=== PATIENT | female | born 1955 | race Caucasian/White ===

== ENCOUNTER → 2019-05-13 13:55 | Outpatient (CLI) | payer BC, OTHER, SELFPAY ==
--- NOTE | 2019-05-13 14:17 | XR_ITS ---
PROCEDURE: XR CHEST 2V CLINICAL HISTORY: COUGH Cough and congestion COMPARISON: CXR CHEST(2 VIEWS-NOT PORTABLE) from 06/20/2016 FINDINGS: The cardiomediastinal silhouette and pulmonary vascularity are within normal limits. The lungs are clear without infiltrates, suspicious nodules, or pleural effusions. No acute bony abnormalities. IMPRESSION: No acute findings. Dictated by: Dixon Guzman MD 05/13/2019 17:45 Electronically signed by Dixon Guzman MD in [place] 05/13/2019 17:45
== END ==
PROVIDERS: PCP Family Medicine; Visit Provider Family Medicine
DX: R05 Cough (principal)
CPT/HCPCS: 71046

== ENCOUNTER → 2021-04-01 09:29 | Outpatient (CLI) | payer MEDICARE, OTHER, SELFPAY | DX: Z94.4 Liver transplant status (principal) ==

== ENCOUNTER → 2021-04-12 08:55 | Outpatient (CLI) | payer MEDICARE, OTHER, SELFPAY ==
[2021-04-12 09:26] LABS: Basophils % 0.4 % (0.1-2.0); Eosinophils # 0.1 K/mm3 (0.0-0.4); Eosinophils % 0.9 % (0.1-12.0); Hematocrit 44.3 % (37.0-47.0); Hemoglobin 14.8 g/dL (12.2-16.2); Lymphocytes # 1.8 K/mm3 (0.7-4.5); Lymphocytes % 32.1 % (10-50); Mean Corpuscular HGB Conc 33.5 g/dL (31.8-35.4); Mean Corpuscular Hemoglobin 29.2 pg (27.0-31.2); Mean Corpuscular Volume 87.3 fl (81-99); Monocytes # 0.3 K/mm3 (0.1-1.0); Monocytes % 5.6 % (1.7-9.3); Neutrophils # 3.5 K/mm3 (1.8-7.8); Platelet Count 160 K/mm3 (142-424); Red Blood Count 5.07 M/mm3 (4.20-5.40); Red Cell Distribution Width 14.5 % (11.5-17.5); White Blood Count 5.7 K/mm3 (4.8-10.8)
[2021-04-12 10:44] LABS: Alanine Aminotransferase 15 U/L (12-78); Albumin Level 4.3 g/dl (3.5-5.0); Albumin/Globulin Ratio 1.9 (1.1-1.8); Alkaline Phosphatase 115 U/L (38-126); Anion Gap 11.4 mEq/L (5-15); Aspartate Amino Transferase 28 U/L (14-36); Bilirubin,Total 0.5 mg/dl (0.2-1.3); Blood Urea Nitrogen 21 mg/dl (7-17); Calcium 9.4 mg/dl (8.4-10.2); Carbon Dioxide 29 mmol/L (22.0-30.0); Chloride 105 mmol/L (98-107); Estimated Glomerular Filt Rate 63 ml/min (>60); GFR (African American) 76 ML/MIN (>60); Gamma Glutamyl Transpeptidase 24 U/L (12-43); Globulin 2.3 g/dL (1.3-3.2); Glucose 106 mg/dl (74-100); Magnesium 1.8 mg/dl (1.6-2.3); Potassium 4.4 mmoL/L (3.5-5.1); Sodium 141 mmol/L (136-145); Total Protein,Serum 6.6 g/dl (6.3-8.2)
== END ==
PROVIDERS: Visit Provider Nurse Practitioner Acute Care
DX: Z94.4 Liver transplant status (principal)
CPT/HCPCS: 36415; 80053; 82977; 83735; 85025

== ENCOUNTER → 2021-05-10 08:24 | Outpatient (CLI) | payer MEDICARE, OTHER, SELFPAY ==
[2021-05-10 09:15] LABS: Basophils % 0.4 % (0.1-2.0); Eosinophils # 0.1 K/mm3 (0.0-0.4); Eosinophils % 1.3 % (0.1-12.0); Hemoglobin 14.2 g/dL (12.2-16.2); Lymphocytes # 1.4 K/mm3 (0.7-4.5); Lymphocytes % 29.5 % (10-50); Mean Corpuscular HGB Conc 33.7 g/dL (31.8-35.4); Mean Corpuscular Hemoglobin 29.5 pg (27.0-31.2); Mean Corpuscular Volume 87.4 fl (81-99); Mean Platelet Volume 7.7 fl (7.4-10.4); Monocytes # 0.4 K/mm3 (0.1-1.0); Monocytes % 7.6 % (1.7-9.3); Neutrophils % 61.2 % (37.0-80.0); Platelet Count 143 K/mm3 (142-424); Red Cell Distribution Width 14.5 % (11.5-17.5); White Blood Count 4.9 K/mm3 (4.8-10.8)
[2021-05-10 10:17] LABS: Alanine Aminotransferase 19 U/L (12-78); Albumin Level 3.9 g/dl (3.5-5.0); Albumin/Globulin Ratio 1.7 (1.1-1.8); Alkaline Phosphatase 103 U/L (38-126); Anion Gap 9.3 mEq/L (5-15); Aspartate Amino Transferase 30 U/L (14-36); Bilirubin,Total 0.5 mg/dl (0.2-1.3); Blood Urea Nitrogen 21 mg/dl (7-17); Carbon Dioxide 29 mmol/L (22.0-30.0); Chloride 104 mmol/L (98-107); Estimated Glomerular Filt Rate 63 ml/min (>60); GFR (African American) 76 ML/MIN (>60); Gamma Glutamyl Transpeptidase 23 U/L (12-43); Globulin 2.3 g/dL (1.3-3.2); Glucose 106 mg/dl (74-100); Magnesium 1.8 mg/dl (1.6-2.3); Potassium 4.3 mmoL/L (3.5-5.1); Sodium 138 mmol/L (136-145); Total Protein,Serum 6.2 g/dl (6.3-8.2)
== END ==
PROVIDERS: Visit Provider Nurse Practitioner Acute Care
DX: Z94.4 Liver transplant status (principal)
CPT/HCPCS: 36415; 80053; 82977; 83735; 85025

== ENCOUNTER → 2021-05-29 10:01 | Outpatient (CLI) | payer MEDICARE, OTHER, SELFPAY ==
[2021-05-29 10:40] LABS: Hematocrit 43.8 % (37.0-47.0); Hemoglobin 14.2 g/dL (12.2-16.2); Mean Corpuscular HGB Conc 32.5 g/dL (31.8-35.4); Mean Corpuscular Hemoglobin 29.1 pg (27.0-31.2); Mean Corpuscular Volume 89.7 fl (81-99); Platelet Count 157 K/mm3 (142-424); Red Blood Count 4.89 M/mm3 (4.20-5.40); Red Cell Distribution Width 14.3 % (11.5-17.5); White Blood Count 6.4 K/mm3 (4.8-10.8)
[2021-05-29 11:10] LABS: Alanine Aminotransferase 20 U/L (12-78); Albumin Level 4.2 g/dl (3.5-5.0); Alkaline Phosphatase 96 U/L (38-126); Anion Gap 12.9 mEq/L (5-15); Aspartate Amino Transferase 29 U/L (14-36); Bilirubin,Total 0.4 mg/dl (0.2-1.3); Blood Urea Nitrogen 18 mg/dl (7-17); Calcium 9.5 mg/dl (8.4-10.2); Carbon Dioxide 28 mmol/L (22.0-30.0); Chloride 104 mmol/L (98-107); Estimated Glomerular Filt Rate 63 ml/min (>60); GFR (African American) 76 ML/MIN (>60); Gamma Glutamyl Transpeptidase 27 U/L (12-43); Globulin 2.1 g/dL (1.3-3.2); Glucose 115 mg/dl (74-100); Magnesium 1.2 mg/dl (1.6-2.3); Potassium 4.9 mmoL/L (3.5-5.1); Sodium 140 mmol/L (136-145); Total Protein,Serum 6.3 g/dl (6.3-8.2)
== END ==
PROVIDERS: Visit Provider Nurse Practitioner Acute Care
DX: Z94.4 Liver transplant status (principal)
CPT/HCPCS: 36415; 80053; 82977; 83735; 85014; 85018; 85048; 85049

== ENCOUNTER → 2021-06-20 09:11 | Outpatient (CLI) | payer MEDICARE, OTHER, SELFPAY ==
[2021-06-20 09:30] LABS: Hematocrit 43.5 % (37.0-47.0); Hemoglobin 13.8 g/dL (12.2-16.2); Mean Corpuscular HGB Conc 31.9 g/dL (31.8-35.4); Mean Corpuscular Hemoglobin 29.3 pg (27.0-31.2); Mean Corpuscular Volume 92.1 fl (81-99); Platelet Count 161 K/mm3 (142-424); Red Blood Count 4.72 M/mm3 (4.20-5.40); Red Cell Distribution Width 14.5 % (11.5-17.5); White Blood Count 5.5 K/mm3 (4.8-10.8)
[2021-06-20 11:12] LABS: Chloride 106 mmol/L (98-107); Potassium 4.6 mmoL/L (3.5-5.1); Sodium 139 mmol/L (136-145)
[2021-06-20 11:14] LABS: Alanine Aminotransferase 16 U/L (12-78); Aspartate Amino Transferase 28 U/L (14-36); Blood Urea Nitrogen 21 mg/dl (7-17); Estimated Glomerular Filt Rate 63 ml/min (>60); GFR (African American) 76 ML/MIN (>60)
[2021-06-20 11:15] LABS: Albumin Level 4.2 g/dl (3.5-5.0); Albumin/Globulin Ratio 1.9 (1.1-1.8); Alkaline Phosphatase 104 U/L (38-126); Anion Gap 8.6 mEq/L (5-15); Bilirubin,Total 0.5 mg/dl (0.2-1.3); Calcium 9.3 mg/dl (8.4-10.2); Carbon Dioxide 29 mmol/L (22.0-30.0); Globulin 2.2 g/dL (1.3-3.2); Glucose 106 mg/dl (74-100); Magnesium 1.6 mg/dl (1.6-2.3); Total Protein,Serum 6.4 g/dl (6.3-8.2)
[2021-06-20 12:04] LABS: Gamma Glutamyl Transpeptidase 25 U/L (12-43)
== END ==
PROVIDERS: PCP Family Medicine; Visit Provider Nurse Practitioner Acute Care
DX: Z94.4 Liver transplant status (principal)
CPT/HCPCS: 36415; 80053; 82977; 83735; 85014; 85018; 85048; 85049

== ENCOUNTER → 2021-08-13 10:14 | Outpatient (CLI) | payer MEDICARE, OTHER, SELFPAY ==
[2021-08-13 10:59] LABS: Hematocrit 44.2 % (37.0-47.0); Hemoglobin 14.4 g/dL (12.2-16.2); Mean Corpuscular HGB Conc 32.6 g/dL (31.8-35.4); Mean Corpuscular Hemoglobin 29.7 pg (27.0-31.2); Mean Corpuscular Volume 91.1 fl (81-99); Platelet Count 155 K/mm3 (142-424); Red Blood Count 4.86 M/mm3 (4.20-5.40); White Blood Count 5.3 K/mm3 (4.8-10.8)
[2021-08-13 11:22] LABS: Alanine Aminotransferase 24 U/L (12-78); Albumin Level 4.1 g/dl (3.5-5.0); Albumin/Globulin Ratio 1.9 (1.1-1.8); Alkaline Phosphatase 102 U/L (38-126); Anion Gap 11.8 mEq/L (5-15); Aspartate Amino Transferase 34 U/L (14-36); Bilirubin,Total 0.5 mg/dl (0.2-1.3); Blood Urea Nitrogen 18 mg/dl (7-17); Carbon Dioxide 28 mmol/L (22.0-30.0); Chloride 107 mmol/L (98-107); Estimated Glomerular Filt Rate 63 ml/min (>60); GFR (African American) 76 ML/MIN (>60); Gamma Glutamyl Transpeptidase 22 U/L (12-43); Globulin 2.2 g/dL (1.3-3.2); Glucose 104 mg/dl (74-100); Magnesium 1.7 mg/dl (1.6-2.3); Potassium 4.8 mmoL/L (3.5-5.1); Sodium 142 mmol/L (136-145); Total Protein,Serum 6.3 g/dl (6.3-8.2)
== END ==
PROVIDERS: Visit Provider Nurse Practitioner Acute Care
DX: Z94.4 Liver transplant status (principal)
CPT/HCPCS: 36415; 80053; 82977; 83735; 85014; 85018; 85048; 85049

== ENCOUNTER → 2021-09-13 09:44 | Outpatient (CLI) | payer MEDICARE, OTHER, SELFPAY ==
[2021-09-13 10:58] LABS: Hematocrit 38.9 % (37.0-47.0); Hemoglobin 14.2 g/dL (12.2-16.2); Mean Corpuscular HGB Conc 36.6 g/dL (31.8-35.4); Mean Corpuscular Hemoglobin 33.6 pg (27.0-31.2); Mean Corpuscular Volume 91.8 fl (81-99); Platelet Count 105 K/mm3 (142-424); Red Blood Count 4.24 M/mm3 (4.20-5.40); Red Cell Distribution Width 15.4 % (11.5-17.5); White Blood Count 4.4 K/mm3 (4.8-10.8)
[2021-09-13 11:26] LABS: Alanine Aminotransferase 21 U/L (12-78); Albumin/Globulin Ratio 1.9 (1.1-1.8); Alkaline Phosphatase 98 U/L (38-126); Anion Gap 10.3 mEq/L (5-15); Aspartate Amino Transferase 29 U/L (14-36); Bilirubin,Total 0.6 mg/dl (0.2-1.3); Blood Urea Nitrogen 20 mg/dl (7-17); Calcium 8.9 mg/dl (8.4-10.2); Carbon Dioxide 27 mmol/L (22.0-30.0); Chloride 108 mmol/L (98-107); Estimated Glomerular Filt Rate 63 ml/min (>60); GFR (African American) 76 ML/MIN (>60); Gamma Glutamyl Transpeptidase 22 U/L (12-43); Globulin 2.1 g/dL (1.3-3.2); Glucose 99 mg/dl (74-100); Magnesium 1.6 mg/dl (1.6-2.3); Potassium 4.3 mmoL/L (3.5-5.1); Sodium 141 mmol/L (136-145); Total Protein,Serum 6.1 g/dl (6.3-8.2)
== END ==
PROVIDERS: Visit Provider Nurse Practitioner Acute Care
DX: Z94.4 Liver transplant status (principal)
CPT/HCPCS: 36415; 80053; 82977; 83735; 85014; 85018; 85048; 85049

== ENCOUNTER → 2021-11-18 09:05 | Outpatient (CLI) | payer MEDICARE, OTHER, SELFPAY ==
[2021-11-18 09:56] LABS: Hematocrit 43.1 % (37.0-47.0); Hemoglobin 13.7 g/dL (12.2-16.2); Mean Corpuscular HGB Conc 31.8 g/dL (31.8-35.4); Mean Corpuscular Hemoglobin 30.3 pg (27.0-31.2); Mean Corpuscular Volume 95.5 fl (81-99); Platelet Count 135 K/mm3 (142-424); Red Blood Count 4.52 M/mm3 (4.20-5.40); Red Cell Distribution Width 15.3 % (11.5-17.5); White Blood Count 4.8 K/mm3 (4.8-10.8)
[2021-11-18 09:58] LABS: Alanine Aminotransferase 26 U/L (12-78); Albumin Level 3.6 g/dl (3.5-5.0); Albumin/Globulin Ratio 1.7 (1.1-1.8); Alkaline Phosphatase 100 U/L (38-126); Anion Gap 8.2 mEq/L (5-15); Aspartate Amino Transferase 31 U/L (14-36); Bilirubin,Total 0.2 mg/dl (0.2-1.3); Blood Urea Nitrogen 14 mg/dl (7-17); Calcium 8.7 mg/dl (8.4-10.2); Carbon Dioxide 29 mmol/L (22.0-30.0); Chloride 107 mmol/L (98-107); Estimated Glomerular Filt Rate 72 ml/min (>60); GFR (African American) 87 ML/MIN (>60); Gamma Glutamyl Transpeptidase 23 U/L (12-43); Globulin 2.1 g/dL (1.3-3.2); Glucose 112 mg/dl (74-100); Magnesium 1.7 mg/dl (1.6-2.3); Potassium 4.2 mmoL/L (3.5-5.1); Sodium 140 mmol/L (136-145); Total Protein,Serum 5.7 g/dl (6.3-8.2)
== END ==
PROVIDERS: PCP Family Medicine; Visit Provider Nurse Practitioner Acute Care
DX: Z94.4 Liver transplant status (principal)
CPT/HCPCS: 36415; 80053; 82977; 83735; 85014; 85018; 85048; 85049

== ENCOUNTER → 2022-01-14 09:06 | Outpatient (CLI) | payer MEDICARE, OTHER, SELFPAY ==
[2022-01-14 10:07] LABS: Hematocrit 44.2 % (37.0-47.0); Hemoglobin 13.9 g/dL (12.2-16.2); Mean Corpuscular HGB Conc 31.4 g/dL (31.8-35.4); Mean Corpuscular Hemoglobin 30.2 pg (27.0-31.2); Mean Corpuscular Volume 96.4 fl (81-99); Platelet Count 137 K/mm3 (142-424); Red Blood Count 4.59 M/mm3 (4.20-5.40); Red Cell Distribution Width 14.6 % (11.5-17.5); White Blood Count 4.9 K/mm3 (4.8-10.8)
[2022-01-14 10:13] LABS: Chloride 108 mmol/L (98-107)
[2022-01-14 10:14] LABS: Potassium 4.1 mmoL/L (3.5-5.1); Sodium 141 mmol/L (136-145)
[2022-01-14 10:16] LABS: Alanine Aminotransferase 24 U/L (12-78); Aspartate Amino Transferase 35 U/L (14-36); Blood Urea Nitrogen 17 mg/dl (7-17); Estimated Glomerular Filt Rate 63 ml/min (>60); GFR (African American) 76 ML/MIN (>60)
[2022-01-14 10:17] LABS: Albumin/Globulin Ratio 1.8 (1.1-1.8); Alkaline Phosphatase 105 U/L (38-126); Anion Gap 12.1 mEq/L (5-15); Bilirubin,Total 0.5 mg/dl (0.2-1.3); Calcium 8.3 mg/dl (8.4-10.2); Carbon Dioxide 25 mmol/L (22.0-30.0); Globulin 2.2 g/dL (1.3-3.2); Glucose 109 mg/dl (74-100); Magnesium 1.7 mg/dl (1.6-2.3); Total Protein,Serum 6.2 g/dl (6.3-8.2)
[2022-01-14 10:30] LABS: Gamma Glutamyl Transpeptidase 22 U/L (12-43)
== END ==
PROVIDERS: PCP Family Medicine; Visit Provider Nurse Practitioner Acute Care
DX: Z94.4 Liver transplant status (principal)
CPT/HCPCS: 36415; 80053; 82977; 83735; 85014; 85018; 85048; 85049

== ENCOUNTER → 2022-02-14 09:02 | Outpatient (CLI) | payer MEDICARE, OTHER, SELFPAY ==
[2022-02-14 10:05] LABS: Basophils % 0.6 % (0.1-2.0); Eosinophils # 0.1 K/mm3 (0.0-0.4); Hematocrit 44.8 % (37.0-47.0); Hemoglobin 14.6 g/dL (12.2-16.2); Lymphocytes % 30.4 % (10-50); Mean Corpuscular HGB Conc 32.7 g/dL (31.8-35.4); Mean Corpuscular Hemoglobin 29.5 pg (27.0-31.2); Mean Corpuscular Volume 90.2 fl (81-99); Mean Platelet Volume 8.3 fl (7.4-10.4); Monocytes # 0.4 K/mm3 (0.1-1.0); Monocytes % 5.8 % (1.7-9.3); Neutrophils # 4.1 K/mm3 (1.8-7.8); Neutrophils % 62.2 % (37.0-80.0); Platelet Count 167 K/mm3 (142-424); Red Blood Count 4.96 M/mm3 (4.20-5.40); Red Cell Distribution Width 14.8 % (11.5-17.5); White Blood Count 6.6 K/mm3 (4.8-10.8)
[2022-02-14 11:58] LABS: Chloride 106 mmol/L (98-107); Potassium 4.6 mmoL/L (3.5-5.1); Sodium 143 mmol/L (136-145)
[2022-02-14 12:01] LABS: Alanine Aminotransferase 23 U/L (12-78); Albumin Level 4.2 g/dl (3.5-5.0); Albumin/Globulin Ratio 1.8 (1.1-1.8); Alkaline Phosphatase 94 U/L (38-126); Anion Gap 14.6 mEq/L (5-15); Aspartate Amino Transferase 32 U/L (14-36); Bilirubin,Total 0.2 mg/dl (0.2-1.3); Blood Urea Nitrogen 19 mg/dl (7-17); Calcium 8.8 mg/dl (8.4-10.2); Carbon Dioxide 27 mmol/L (22.0-30.0); Estimated Glomerular Filt Rate 62 ml/min (>60); GFR (African American) 76 ML/MIN (>60); Globulin 2.3 g/dL (1.3-3.2); Glucose 109 mg/dl (74-100); Magnesium 1.7 mg/dl (1.6-2.3); Total Protein,Serum 6.5 g/dl (6.3-8.2)
[2022-02-14 12:42] LABS: Gamma Glutamyl Transpeptidase 23 U/L (12-43)
== END ==
PROVIDERS: PCP Family Medicine; Visit Provider Nurse Practitioner Acute Care
DX: Z94.4 Liver transplant status (principal)
CPT/HCPCS: 36415; 80053; 82977; 83735; 85025

== ENCOUNTER → 2022-03-11 10:00 | Outpatient (CLI) | payer MEDICARE, OTHER, SELFPAY ==
[2022-03-11 10:58] LABS: Hematocrit 43.7 % (37.0-47.0); Hemoglobin 14.4 g/dL (12.2-16.2); Mean Corpuscular Hemoglobin 30.5 pg (27.0-31.2); Mean Corpuscular Volume 92.4 fl (81-99); Platelet Count 135 K/mm3 (142-424); Red Blood Count 4.74 M/mm3 (4.20-5.40); White Blood Count 4.8 K/mm3 (4.8-10.8)
[2022-03-11 11:53] LABS: Chloride 105 mmol/L (98-107)
[2022-03-11 11:54] LABS: Potassium 4.5 mmoL/L (3.5-5.1); Sodium 142 mmol/L (136-145)
[2022-03-11 11:56] LABS: Alanine Aminotransferase 23 U/L (12-78); Alkaline Phosphatase 99 U/L (38-126); Anion Gap 11.5 mEq/L (5-15); Aspartate Amino Transferase 31 U/L (14-36); Bilirubin,Total 0.6 mg/dl (0.2-1.3); Blood Urea Nitrogen 18 mg/dl (7-17); Carbon Dioxide 30 mmol/L (22.0-30.0); Estimated Glomerular Filt Rate 55 ml/min (>60); GFR (African American) 67 ML/MIN (>60)
[2022-03-11 11:57] LABS: Albumin/Globulin Ratio 1.8 (1.1-1.8); Calcium 8.8 mg/dl (8.4-10.2); Globulin 2.2 g/dL (1.3-3.2); Glucose 94 mg/dl (74-100); Magnesium 1.6 mg/dl (1.6-2.3); Total Protein,Serum 6.2 g/dl (6.3-8.2)
[2022-03-11 12:34] LABS: Gamma Glutamyl Transpeptidase 20 U/L (12-43)
== END ==
PROVIDERS: PCP Family Medicine; Visit Provider Nurse Practitioner Acute Care
DX: Z94.4 Liver transplant status (principal)
CPT/HCPCS: 36415; 80053; 82977; 83735; 85014; 85018; 85048; 85049

== ENCOUNTER → 2022-05-12 11:30 | Outpatient (CLI) | payer MEDICARE, OTHER, SELFPAY ==
[2022-05-12 12:42] LABS: Basophils % 0.3 % (0.1-2.0); Eosinophils # 0.1 K/mm3 (0.0-0.4); Eosinophils % 1.3 % (0.1-12.0); Hemoglobin 13.8 g/dL (12.2-16.2); Lymphocytes # 1.5 K/mm3 (0.7-4.5); Mean Corpuscular HGB Conc 32.9 g/dL (31.8-35.4); Mean Corpuscular Hemoglobin 29.4 pg (27.0-31.2); Mean Corpuscular Volume 89.3 fl (81-99); Mean Platelet Volume 8.3 fl (7.4-10.4); Monocytes # 0.4 K/mm3 (0.1-1.0); Monocytes % 5.6 % (1.7-9.3); Neutrophils # 4.7 K/mm3 (1.8-7.8); Neutrophils % 70.9 % (37.0-80.0); Platelet Count 159 K/mm3 (142-424); Red Blood Count 4.71 M/mm3 (4.20-5.40); Red Cell Distribution Width 14.7 % (11.5-17.5); White Blood Count 6.7 K/mm3 (4.8-10.8)
[2022-05-12 13:45] LABS: Alanine Aminotransferase 23 U/L (12-78); Albumin/Globulin Ratio 1.8 (1.1-1.8); Alkaline Phosphatase 112 U/L (38-126); Anion Gap 11.4 mEq/L (5-15); Aspartate Amino Transferase 32 U/L (14-36); Bilirubin,Total 0.5 mg/dl (0.2-1.3); Blood Urea Nitrogen 16 mg/dl (7-17); Calcium 9.4 mg/dl (8.4-10.2); Carbon Dioxide 29 mmol/L (22.0-30.0); Chloride 106 mmol/L (98-107); Estimated Glomerular Filt Rate 55 ml/min (>60); GFR (African American) 67 ML/MIN (>60); Gamma Glutamyl Transpeptidase 23 U/L (12-43); Globulin 2.2 g/dL (1.3-3.2); Glucose 103 mg/dl (74-100); Magnesium 1.6 mg/dl (1.6-2.3); Potassium 4.4 mmoL/L (3.5-5.1); Sodium 142 mmol/L (136-145); Total Protein,Serum 6.2 g/dl (6.3-8.2)
== END ==
PROVIDERS: PCP Family Medicine; Visit Provider Nurse Practitioner Acute Care
DX: Z94.4 Liver transplant status (principal)
CPT/HCPCS: 36415; 80053; 82977; 83735; 85025

== ENCOUNTER → 2022-07-23 08:25 | Outpatient (CLI) | payer MEDICARE, OTHER, SELFPAY ==
--- NOTE | 2022-07-23 08:34 | XR_ITS ---
FINAL REPORT CLINICAL HISTORY: SWELLING - pain - gives out on occasion FINDINGS: AP, lateral and oblique views of the right knee were obtained. There is no prior exam for comparison. There is no acute osseous abnormality of the right knee. There is degenerative disease. The soft tissues are normal. There is no joint effusion. IMPRESSION: Degenerative disease. Reviewed, Interpreted and Dictated by Abigail Baca MD Transcribed by Jeanna Coughlin Authenticated and [facility]
== END ==
PROVIDERS: PCP Nurse Practitioner Family; Visit Provider Nurse Practitioner Family
DX: M25.461 Effusion, right knee (principal)
CPT/HCPCS: 73562

== ENCOUNTER → 2022-09-11 10:36 | Outpatient (CLI) | payer MEDICARE, OTHER, SELFPAY ==
[2022-09-11 11:32] LABS: Basophils % 0.3 % (0.1-2.0); Eosinophils # 0.1 K/mm3 (0.0-0.4); Eosinophils % 1.3 % (0.1-12.0); Hematocrit 44.2 % (37.0-47.0); Hemoglobin 14.5 g/dL (12.2-16.2); Lymphocytes # 1.9 K/mm3 (0.7-4.5); Mean Corpuscular HGB Conc 32.8 g/dL (31.8-35.4); Mean Corpuscular Hemoglobin 29.3 pg (27.0-31.2); Mean Corpuscular Volume 89.1 fl (81-99); Mean Platelet Volume 7.7 fl (7.4-10.4); Monocytes # 0.5 K/mm3 (0.1-1.0); Monocytes % 7.7 % (1.7-9.3); Neutrophils # 3.8 K/mm3 (1.8-7.8); Neutrophils % 60.8 % (37.0-80.0); Platelet Count 140 K/mm3 (142-424); Red Blood Count 4.96 M/mm3 (4.20-5.40); Red Cell Distribution Width 14.6 % (11.5-17.5); White Blood Count 6.2 K/mm3 (4.8-10.8)
[2022-09-11 11:53] LABS: Alanine Aminotransferase 21 U/L (12-78); Albumin Level 3.9 g/dl (3.5-5.0); Albumin/Globulin Ratio 1.8 (1.1-1.8); Alkaline Phosphatase 99 U/L (38-126); Anion Gap 12.1 mEq/L (5-15); Aspartate Amino Transferase 26 U/L (14-36); Bilirubin,Total 0.7 mg/dl (0.2-1.3); Blood Urea Nitrogen 20 mg/dl (7-17); Calcium 8.9 mg/dl (8.4-10.2); Carbon Dioxide 29 mmol/L (22.0-30.0); Chloride 102 mmol/L (98-107); Estimated Glomerular Filt Rate 62 ml/min (>60); GFR (African American) 76 ML/MIN (>60); Gamma Glutamyl Transpeptidase 27 U/L (12-43); Globulin 2.2 g/dL (1.3-3.2); Glucose 122 mg/dl (74-100); Magnesium 1.6 mg/dl (1.6-2.3); Potassium 4.1 mmoL/L (3.5-5.1); Sodium 139 mmol/L (136-145); Total Protein,Serum 6.1 g/dl (6.3-8.2)
[2022-09-16 09:38] LABS: Tacrolimus (FK506), Blood 3.3
== END ==
PROVIDERS: Nurse Practitioner Acute Care; PCP Nurse Practitioner Family; Visit Provider Physician Assistant
DX: Z94.4 Liver transplant status (principal)
CPT/HCPCS: 36415; 80053; 80197; 82977; 83735; 85025

== ENCOUNTER → 2022-11-11 09:37 | Outpatient (CLI) | payer MEDICARE, OTHER, SELFPAY ==
[2022-11-11 10:16] LABS: Basophils % 0.3 % (0.1-2.0); Eosinophils # 0.1 K/mm3 (0.0-0.4); Eosinophils % 1.3 % (0.1-12.0); Hematocrit 43.3 % (37.0-47.0); Hemoglobin 14.5 g/dL (12.2-16.2); Lymphocytes # 1.8 K/mm3 (0.7-4.5); Lymphocytes % 32.1 % (10-50); Mean Corpuscular HGB Conc 33.4 g/dL (31.8-35.4); Mean Corpuscular Hemoglobin 29.2 pg (27.0-31.2); Mean Corpuscular Volume 87.4 fl (81-99); Mean Platelet Volume 7.8 fl (7.4-10.4); Monocytes # 0.4 K/mm3 (0.1-1.0); Monocytes % 7.4 % (1.7-9.3); Neutrophils # 3.3 K/mm3 (1.8-7.8); Neutrophils % 58.9 % (37.0-80.0); Platelet Count 154 K/mm3 (142-424); Red Blood Count 4.96 M/mm3 (4.20-5.40); Red Cell Distribution Width 14.9 % (11.5-17.5); White Blood Count 5.7 K/mm3 (4.8-10.8)
[2022-11-11 10:35] LABS: Alanine Aminotransferase 25 U/L (12-78); Anion Gap 14.1 mEq/L (5-15); Aspartate Amino Transferase 31 U/L (14-36); Bilirubin,Total 0.4 mg/dl (0.2-1.3); Blood Urea Nitrogen 22 mg/dl (7-17); Carbon Dioxide 29 mmol/L (22.0-30.0); Chloride 103 mmol/L (98-107); Estimated Glomerular Filt Rate 55 ml/min (>60); GFR (African American) 67 ML/MIN (>60); Gamma Glutamyl Transpeptidase 23 U/L (12-43); Glucose 119 mg/dl (74-100); Magnesium 1.5 mg/dl (1.6-2.3); Potassium 4.1 mmoL/L (3.5-5.1); Sodium 142 mmol/L (136-145)
[2022-11-11 10:36] LABS: Albumin Level 3.9 g/dl (3.5-5.0); Albumin/Globulin Ratio 1.8 (1.1-1.8); Alkaline Phosphatase 94 U/L (38-126); Globulin 2.2 g/dL (1.3-3.2); Total Protein,Serum 6.1 g/dl (6.3-8.2)
[2022-11-19 08:39] LABS: Tacrolimus (FK506), Blood 4.3
== END ==
PROVIDERS: PCP Family Medicine; Visit Provider Nurse Practitioner Acute Care
DX: Z94.4 Liver transplant status (principal)
CPT/HCPCS: 36415; 80053; 80197; 82977; 83735; 85025

== ENCOUNTER → 2022-11-18 13:46 | Outpatient (POV) | payer MEDICARE, OTHER, SELFPAY | PROVIDERS: Visit Provider Dermatology | DX: Z00.00 Encounter for general adult medical examination without abnormal findings (principal) ==

== ENCOUNTER 2023-06-08 11:29 | Emergency (ER) | payer MEDICARE, OTHER, SELFPAY ==
[2023-06-08] VITALS (8 sets, daily range): BP systolic 139–162; BP diastolic 73–98; PULSE 87–115; RESP 18–20; TEMP 36.9; O2SAT 94–96; BMI 48.5
--- NOTE | 2023-06-08 11:39 | ECG_ITS ---
APPROVED REPORT Exam: Resting ECG HR:114 bpm ECG Measurements Heart Rate 114 AXES IN 112 P 36 QRSd 82 QRS 55 QT 319 T 59 QTc 387 Conclusion SINUS TACHYCARDIA WITH SHORT IN INTERVAL ABNORMAL RHYTHM ECG UNCONFIRMED REPORT Electronically signed by : Daryl Bynum MD 06/08/2023 20:16:57
--- NOTE | 2023-06-08 11:42 | PC.NURSE ---
Dr. Patrick at BS for pt eval
--- NOTE | 2023-06-08 11:43 | PC.NURSE ---
dr regalado at bedside
--- NOTE | 2023-06-08 11:56 | XR_ITS ---
FINAL REPORT TECHNIQUE: Single view chest CLINICAL HISTORY: dyspnea FINDINGS: A single view of the chest was obtained. The heart and mediastinum are within normal limits. The lungs are clear. There is no pneumothorax. Osseous structures are unremarkable. IMPRESSION: No acute cardiopulmonary process. Reviewed, Interpreted and Dictated by Tez Contreras III, MD Transcribed by Tiffany Matos Authenticated and [facility]
--- NOTE | 2023-06-08 11:58 | HMH.EDGENADL ---
Discharge Plan Disposition Patient Disposition: Home, Self-Care Prescriptions Prescriptions: New fluconazole 150 mg tablet 150 mg PO ONCE 1 Days Qty: 2 0RF Rx Instructions: repeat in one week if not improving cefdinir 300 mg capsule 300 mg PO BID 7 Days Qty: 14 0RF Referrals Follow up/Referrals: Siri Mena MD [Primary Care Provider] - See instructions Igor Farfan DO [Staff Physician] - See instructions Activity Restrictions/Add. Instructions Additional Instructions/Restrictions: You are positive for COVID-19 and with shared decision making we opted to not do Paxlovid. Additionally your urinalysis is consistent with urinary tract infection and while it is possible that your GI symptoms are consistent with C. difficile given your immune status we chose to go ahead and treat you for a complicated urinary tract infection with cefdinir. Please follow-up in 48 to 72 hours with your urine culture. Additionally dose of fluconazole has been added for concerns for oral thrush as well as vaginal yeast infection. There is a standing order right now for the GI PCR panel for your diarrhea please return your stool sample at your next available time. So that results are back by the time you see your primary care doctor. A referral has been made for Dr. Farfan who is accepting new patients at [facility]. Additionally may call patient access center if he would like to establish care with an internal medicine doctor at [facility] where your transplant surgeons are. Clinical Impressions Clinical Impression: Nausea vomiting and diarrhea, Liver replaced by transplant, Immunosuppressed status, Tachycardia, Cough, UTI (urinary tract infection), COVID-19 Instructions Patient Instructions: DI for Diarrhea and Traveler's Diarrhea -- Adult, DI for Diarrhea and Traveler's Diarrhea -- Child, DI for Nausea -- Adult, DI for Nausea -- Child Discharge ED Provider: Mark Patrick General Adult HPI General Chief complaint: Nausea/Vomiting/Diarrhea Stated complaint: VOMITING AND WEAKNESS Time Seen by Provider: 06/08/23 11:40 Mode of Arrival: Ambulatory Source of Information: Patient Limitations: No Limitations Description of Symptoms (Recalled from ER Triage Doc. by RN): Patient reports nausea, diarrhea, and weakness for 3 days. Patient states she was placed on antibiotics due to cellulitis after right knee surgerey. patient states she did not finish meds due to thrush. Patient denies pain at this time. 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 States she has not had a fever since her liver transplant in 2019. Of note she had a knee replacement in the middle of April last month subsequently developed a postoperative soft tissue infection and was treated for cellulitis including a cephalosporin for a week, doxycycline for a week, and then clindamycin. She developed oral thrush and self discontinued her clindamycin for cellulitis significantly improved since that time. Related Data Previous Rx's Medication Instructions Recorded cefdinir 300 mg capsule 300 mg PO BID 7 days #14 caps 06/08/23 fluconazole 150 mg tablet 150 mg PO ONCE 1 day #2 tabs 06/08/23 Allergies Allergy/AdvReac Type Severity Reaction Status Date / Time No Known Allergies Allergy Verified 06/08/23 11:59 [facility] Disclaimer: The information contained in this section may have been updated after the patient was seen, as this information can be updated by other users. Social History Smoking Status: Never smoker alcohol intake: never current occupational status: other Travel in the last 8 weeks: None ROS Obtained: Yes All systems reviewed & no additional complaints except as documented Physical Exam General General appearance: alert Respiratory Respiratory exam: Present normal lung sounds bilaterally; Absent respiratory distress Cardiovascular Cardiovascular exam: Present normal rhythm and tachycardia Abdominal Exam Abdominal exam: Present soft; Absent distention or tenderness Extremities Exam Extremities exam: Present other (Right lower extremity anterior surgical site has no pathologic erythema purulent drainage or evidence of soft tissue infection) Neurological Exam Neurological exam: Present alert Medical Decision Making [place] Inquiry Pt receiving controlled substance: No Vital Signs: 06/08/23 11:30 06/08/23 12:00 06/08/23 13:13 Temperature 98.5 F Temperature Source Oral Pulse Rate 101 H 87 Pulse Rate [Right] 115 H Respiratory Rate 20 Blood Pressure 154/94 H Blood Pressure [Right Arm] 139/73 Blood Pressure Mean [Right Arm] 95 Blood Pressure Source [Right Arm] Automatic Cuff 02 Sat by Pulse Oximetry 96 95 95 Oxygen Delivery Method Room Air Room Air Room Air 06/08/23 13:30 06/08/23 14:00 06/08/23 14:45 Temperature Temperature Source Pulse Rate 89 89 91 H Pulse Rate [Right] Respiratory Rate Blood Pressure 149/97 H 146/97 H 162/98 H Blood Pressure [Right Arm] Blood Pressure Mean [Right Arm] Blood Pressure Source [Right Arm] 02 Sat by Pulse Oximetry 95 96 96 Oxygen Delivery Method Room Air Room Air Room Air Lab Data Lab results reviewed: Yes I reviewed the patient's lab results. Lab Results 06/08/23 11:35: WBC 6.7, RBC 4.95, Hgb 15.2, Hct 44.6, MCV 90.0, MCH 30.7, MCHC 34.1, RDW 15.1, Plt Count 146, MPV 8.4, Neut % (Auto) 55.8, Lymph % (Auto) 32.9, [place] % (Auto) 9.9 H, Eos % (Auto) 0.8, Baso % (Auto) 0.7, Neut # (Auto) 3.8, Lymph # (Auto) 2.2, [place] # (Auto) 0.7, Eos # (Auto) 0.1, Baso # (Auto) 0.0, Sodium 140, Potassium 3.8, Chloride 101, Carbon Dioxide 28, Anion Gap 14.8, BUN 15, Creatinine 1.10 H, Estimated Creat Clear 40, Estimated GFR 49 L, Est GFR ( Amer) 60, Glucose 134 H, Lactate 2.1, Calcium 9.0, Total Bilirubin 0.8, AST 38 H, ALT 28, Alkaline Phosphatase 126, Total Protein 7.3, Albumin 4.1, Globulin 3.2, Albumin/Globulin Ratio 1.3, Chlamy pneumoniae PCR TNP, Adenovirus (PCR) Not detected, B. pertussis DNA (PCR) TNP, Coronavirus OC43 (PCR) Not detected, Coronavirus HKU1 (PCR) Not detected, Coronavirus 229E (PCR) Not detected, SARS-CoV-2 (PCR) Detected A, Coronavirus NL63 (PCR) Not detected, Human Metapneumovir PCR Not detected, Influenza A (H1) PCR Not detected, Influ A (H1N1/09) PCR Not detected, Influenza A (H3) PCR Not detected, Influenza Type A (PCR) Not detected, Influenza Type B (PCR) Not detected, M. pneumoniae (PCR) TNP, Parainfluenza 1 (PCR) Not detected, Parainfluenza 2 (PCR) Not detected, Parainfluenza 3 (PCR) Not detected, Parainfluenza 4 (PCR) Not detected, RSV (PCR) Not detected, Entero/Rhino (PCR) Not detected 06/08/23 13:06: Urine Color Yellow, Urine Appearance Clear, Urine pH 7.0, Ur Specific [place] 1.015, Urine Protein Trace, Urine Glucose (UA) Negative, Urine Ketones Trace, Urine Blood Trace-i, Urine Nitrate Negative, Urine Bilirubin 1+ A, Urine Urobilinogen 0.2, Ur Leukocyte Esterase 2+ A, Urine RBC Occasional, Urine WBC 20-50, Ur Squamous Epith Cells 3-5, Urine Bacteria Trace 06/08/23 11:35 06/08/23 11:35 Orders (Tests/Meds): ED MEDICATIONS Discontinued Medications Generic Name Dose Route Start Last Admin Trade Name Freq PRN Reason Stop Dose Admin Lactated Ringer's 1,000 mls @ 999 mls/hr 06/08/23 12:00 06/08/23 12:04 Lactated Ringer's 1000 Ml Bag IV 06/08/23 13:00 999 mls/hr .Q1H1M JESSICA Administration Ondansetron HCl 4 mg 06/08/23 11:56 06/08/23 12:04 Ondansetron 4mg/2ml Vial IV 06/08/23 11:57 4 mg ONCE ONE Administration ORDERS Category Date Time Status CXR --portable [XR chest portable] Stat Exams 06/08/23 11:56 Completed CBC w/Auto Diff [Complete Blood Count Auto Diff] Stat Lab 06/08/23 11:35 Completed CMP [Comprehensive Metabolic Panel] Stat Lab 06/08/23 11:35 Completed Diarrhea 23 Panel, PCR Stat Lab 06/08/23 11:56 Ordered Full Resp Panel w/COVID ([facility]) Routine Lab 06/08/23 11:35 Completed Lactic Acid Stat Lab 06/08/23 11:35 Completed UA [Urinalysis and Microscopic] Stat Lab 06/08/23 13:06 Completed Blood Culture Stat Micro 06/08/23 12:38 Received Urine Culture Stat Micro 06/08/23 13:06 Received ECG initial [place] Routine Y 06/08/23 11:39 Completed Medical Decision Narrative: EKG performed which I personally interpreted shows a ventricular rate of 114 sinus tachycardia there is a mildly short IL interval at 112 but no delta wave, no ischemic changes normal axis nondiagnostic emergency EKG Patient is a 68-year-old immune suppressed patient presented today with tachycardia and fever at home. Differential is very broad including opportunistic infections. Concerning Duong with her diarrhea and 3 weeks of antibiotics preceding this I am very worried about C. difficile and a PCR panel has been ordered. Abdominal exam is benign. Respiratory exam is also benign but pneumonia certainly remains on the differential. Bacteremia urinary tract infection viral respiratory infection also in the differential etc. IV fluids have been administered will reassess shortly. Reassessment 3:21 PM patient remains very stable and well-appearing. Labs unremarkable from a sepsis standpoint. She does have evidence of urinary tract infection with leukocyte esterase as well as white blood cells without any significant squamous epithelial cells. And in the setting of fever and she is symptomatic from the standpoint I will treat her for a complicated urinary tract infection. She was unable to give us any stool sample and she is still very concerned about additional antibiotic therapy in the setting of possible C. difficile. She is not having profound diarrhea and she also had other right viral symptoms which are all consistent with COVID-19 I suspect that her diarrhea is largely secondary to the viral syndrome associated with COVID and not C. difficile however I did have a risk-benefit discussion with her and given her immune system suppressed status we will go ahead and treat her if she has been advised to follow-up with primary care doctor and to have her cultures reviewed within 40 to 72 hours. Lastly we had a risk-benefit discussion regarding COVID and his treatment regarding Paxlovid and with shared decision making she opted to not take this medication. Chest x-ray performed which I personally interpreted shows no acute cardiopulmonary emergency. Return precautions were emphasized patient was very well-appearing on discharged and lastly she was also given a prescription of fluconazole as she was concerned about possibility of recent oral thrush and candidal vaginitis. Critical Care Critical Care Time Critical Care Time: No
[2023-06-08] MEDS: ONDANSETRON 4MG/2ML VIAL 4 MG IV (12:04)
[2023-06-08] MEDS: LACTATED RINGERS 1000ML 1,000 ML 999 ML IV (12:04)
[2023-06-08 12:06] LABS: Adenovirus,PCR Not Detected (NotDetected); Coronavirus 229E Not Detected (NotDetected); Coronavirus NL63 Not Detected (NotDetected); Coronavirus OC43 Not Detected (NotDetected); Coronovirus HKU1,PCR Not Detected (NotDetected); Human Metapneumovirus Not Detected (NotDetected); Influenza A, PCR Not Detected (NotDetected); Influenza AH1, 2009 Not Detected (NotDetected); Influenza AH1, PCR Not Detected (NotDetected); Influenza AH3,PCR Not Detected (NotDetected); Influenza B, PCR Not Detected (NotDetected); Parainfluenza 1, PCR Not Detected (NotDetected); Parainfluenza 2, PCR Not Detected (NotDetected); Parainfluenza 3, PCR Not Detected (NotDetected); Parainfluenza 4, PCR Not Detected (NotDetected); Respiratory Syncytial Virus Not Detected (NotDetected); Rhinovirus/Enterovirus Not Detected (NotDetected)
[2023-06-08 12:12] LABS: Basophils % 0.7 % (0.1-2.0); Eosinophils # 0.1 K/mm3 (0.0-0.4); Eosinophils % 0.8 % (0.1-12.0); Hematocrit 44.6 % (37.0-47.0); Hemoglobin 15.2 g/dL (12.2-16.2); Lymphocytes # 2.2 K/mm3 (0.7-4.5); Lymphocytes % 32.9 % (10-50); Mean Corpuscular HGB Conc 34.1 g/dL (31.8-35.4); Mean Corpuscular Hemoglobin 30.7 pg (27.0-31.2); Mean Platelet Volume 8.4 fl (7.4-10.4); Monocytes # 0.7 K/mm3 (0.1-1.0); Monocytes % 9.9 % (1.7-9.3); Neutrophils # 3.8 K/mm3 (1.8-7.8); Neutrophils % 55.8 % (37.0-80.0); Platelet Count 146 K/mm3 (142-424); Red Blood Count 4.95 M/mm3 (4.20-5.40); Red Cell Distribution Width 15.1 % (11.5-17.5); White Blood Count 6.7 K/mm3 (4.8-10.8)
[2023-06-08 12:14] LABS: Chloride 101 mmol/L (98-107); Sodium 140 mmol/L (136-145)
[2023-06-08 12:15] LABS: Potassium 3.8 mmoL/L (3.5-5.1)
[2023-06-08 12:17] LABS: Alanine Aminotransferase 28 U/L (12-78); Albumin Level 4.1 g/dl (3.5-5.0); Albumin/Globulin Ratio 1.3 (1.1-1.8); Alkaline Phosphatase 126 U/L (38-126); Anion Gap 14.8 mEq/L (5-15); Aspartate Amino Transferase 38 U/L (14-36); Bilirubin,Total 0.8 mg/dl (0.2-1.3); Blood Urea Nitrogen 15 mg/dl (7-17); Carbon Dioxide 28 mmol/L (22.0-30.0); Creatinine Clearance Estimated 40 mL/min (50-200); Estimated Glomerular Filt Rate 49 ml/min (>60); GFR (African American) 60 ML/MIN (>60); Globulin 3.2 g/dL (1.3-3.2); Glucose 134 mg/dl (74-100); Total Protein,Serum 7.3 g/dl (6.3-8.2)
[2023-06-08 12:29] LABS: Lactic Acid 2.1 mmol/L (0.7-2.1)
--- NOTE | 2023-06-08 12:38 | PC.NURSE ---
Second set of cultures drawn and sent to LAB. No needs voiced at this time. Call light within reach.
[2023-06-08 13:09] LABS: Microscopic, Urine URINE MICROSCOPIC (MICROSCOPIC)
--- NOTE | 2023-06-08 13:12 | PC.NURSE ---
Pt ambulatory to bathroom. Urine collected.
[2023-06-08 13:40] LABS: Appearance,Urine CLEAR (Clear); Blood, Urine TRACE-I (Negative); Color,Urine YELLOW (Yellow); Glucose,Urine (UA) Negative (Negative); Ketones,Urine TRACE (Negative); Leukocyte Esterase,Urine 2+ (Negative); Nitrate,Urine Negative (Negative); Protein,Urine TRACE (Negative); Specific Gravity, Urine 1.015 (1.005-1.030); Urobilinogen,Urine 0.2 EU/dl (0.2)
[2023-06-08 13:41] LABS: Bilirubin,Urine 1+ (Negative)
--- NOTE | 2023-06-08 14:52 | PC.NURSE ---
Dr. Patrick at BS to update pt/visitors on results
[2023-06-08 14:53] LABS: Coronavirus 19, PCR Detected (NotDetected)
[2023-06-08 14:54] LABS: Bacteria,Urine Trace /lpf; RBC,Urine Occasional #/hpf (0-3); WBC,Urine 20-50 #/hpf (0-3)
[2023-06-08 15:51] LABS: Adenovirus F 40/41, stool Not Detected (NotDetected); Astrovirus Not Detected (NotDetected); Campylobacter Not Detected (NotDetected); Clostridium Difficile A/B, PCR Not Detected (NotDetected); Cryptosporidium Not Detected (NotDetected); Cyclospora Cayetanesis Not Detected (NotDetected); Entamoeba histolytica Not Detected (NotDetected); Enteroaggregative E coli Not Detected (NotDetected); Enteropathogenic E coli Not Detected (NotDetected); Enterotoxigenic E coli Not Detected (NotDetected); Giardia lamblia Not Detected (NotDetected); Norovirus Not Detected (NotDetected); Plesimonas Shigalloides, PCR Not Detected (NotDetected); Rotavirus A Not Detected (NotDetected); Salmonella, PCR Not Detected (NotDetected); Sapovirus Not Detected (NotDetected); Shiga-like toxin E coli Not Detected (NotDetected); Shigella Enterovasive E coli Not Detected (NotDetected); Vibrio Cholerae Not Detected (NotDetected); Vibrio, PCR Not Detected (NotDetected); Yersinia Entercolitica, PCR Not Detected (NotDetected)
[2023-06-08 16:01] LABS: Reflex Lactic Add Lactic Reflex
--- NOTE | 2023-06-13 09:45 | PC.NURSE ---
aware of urine culture results, pt dc with cefdinir and fluconazole, no further action at this time
== END 2023-06-08 15:57 | disposition home or self-care (01) ==
PROVIDERS: Emergency Provider Student in an Organized Health Care Education/Training Program; PCP Family Medicine
DX: U07.1 COVID-19 (principal); N39.0 Urinary tract infection, site not specified; R11.2 Nausea with vomiting, unspecified; R19.7 Diarrhea, unspecified; R00.0 Tachycardia, unspecified; R05.9 Cough, unspecified; D84.89 Other immunodeficiencies; Z94.4 Liver transplant status
CPT/HCPCS: 71045; 80053; 81001; 83605; 85025; 87040; 87086; 87507; 87632; 87635; 93005; 96361; 96374; 99285; J2405

== ENCOUNTER 2023-07-15 10:19 | Outpatient (CLI) | payer MEDICARE, OTHER, SELFPAY ==
--- NOTE | 2023-07-15 10:20 | MM_ITS ---
PROCEDURE INFORMATION: Exam: MG Bilateral Screening 3D Mammography Exam date and time: 07/15/2023 10:21 AM Age: 68 years old Clinical indication: Screening. No family history of breast cancer. History of benign biopsy. TECHNIQUE: Imaging protocol: Bilateral Screening tomosynthesis and 2D mammography including computer-aided detection (CAD) when performed.The technologist's notes document that best images possible were obtained to the patient's abilities. COMPARISON: 1. [facility] 11/26/2018 11:45 AM 2. MG [facility] MAMMO W/CAD LT 11/16/2018 1:51 PM 3. MG [facility] SCRN MAMMO W/CAD BILAT 11/08/2018 3:24 PM FINDINGS: MAMMOGRAPHY: Breast composition: There are scattered areas of fibroglandular density. Mass: None. Architectural distortion: None. Calcifications: No suspicious calcifications. Asymmetric density: None. Skin thickening: None. Axillary adenopathy: None. IMPRESSION: No mammographic evidence of malignancy. Annual screening is recommended unless otherwise clinically indicated. ASSESSMENT: BI-RADS Category 1: Negative
== END 2023-07-15 23:59 ==
PROVIDERS: PCP Internal Medicine; Visit Provider Internal Medicine
DX: Z12.31 Encounter for screening mammogram for malignant neoplasm of breast (principal)
CPT/HCPCS: 77063; 77067

== ENCOUNTER 2023-09-14 02:18 | Emergency (ER) | payer MEDICARE, OTHER, SELFPAY ==
[2023-09-14 02:19] VITALS: BP 186/117; PULSE 122; RESP 19; TEMP 36.8; O2SAT 92; BMI 48.2
--- NOTE | 2023-09-14 02:26 | CT_ITS ---
PROCEDURE INFORMATION: Exam: CT Abdomen And Pelvis With Contrast Exam date and time: 09/14/2023 2:45 AM Age: 68 years old Clinical indication: Abdominal pain; Additional info: Mid left abd pain TECHNIQUE: Imaging protocol: Computed tomography of the abdomen and pelvis with contrast. Radiation optimization: All CT scans at this facility use at least one of these dose optimization techniques: automated exposure control; mA and/or kV adjustment per patient size (includes targeted exams where dose is matched to clinical indication); or iterative reconstruction. Contrast material: ISOVUE; Contrast volume: 75 ml; Contrast route: IV; COMPARISON: CR XR CHEST PORTABLE 06/08/2023 11:58 AM FINDINGS: Liver: Normal. No mass. Gallbladder and bile ducts: Prior cholecystectomy. Pancreas: Normal. No ductal dilation. Spleen: Normal. No splenomegaly. Adrenal glands: Normal. No mass. Kidneys and ureters: Prominent simple appearing left renal cyst. Stomach and bowel: Unremarkable. No obstruction. No mucosal thickening. Appendix: No evidence of appendicitis. Intraperitoneal space: Unremarkable. No free air. No significant fluid collection. Vasculature: Some prominent mesenteric veins are seen in the mid abdomen at the level of the aortic bifurcation. These connect with the superior mesenteric vein. Lymph nodes: Unremarkable. No enlarged lymph nodes. Urinary bladder: Unremarkable as visualized. Reproductive: Unremarkable as visualized. Bones/joints: Unremarkable. No acute fracture. Soft tissues: Unremarkable. IMPRESSION: 1. No acute process noted to explain the patient's symptoms. 2. Prior hysterectomy. 3. Some prominent mesenteric veins are seen in the mid abdomen this may be an anatomic variant. The portal venous system is widely patent. COMMENTS: Consistent with the [employer]'s Incidental Findings Committee white paper (J Am Geena Radiol 2018): Any incidental renal lesion less than 1 cm or classified as too small to characterize, or any incidental cystic renal lesion characterized as simple-appearing, is likely benign. No follow-up imaging is recommended for these lesions per consensus recommendations based on imaging criteria.
[2023-09-14 02:29] VITALS: PULSE 95; O2SAT 94
--- NOTE | 2023-09-14 02:31 | [facility]H.EDGENADL ---
Discharge Plan Disposition Patient Disposition: Home, Self-Care Prescriptions Prescriptions: No Action doxycycline hyclate 100 mg capsule 100 mg PO DAILY hydrochlorothiazide 12.5 mg tablet 12.5 mg PO DAILY ondansetron HCl 4 mg tablet 4 mg PO PRN atorvastatin 20 mg tablet 20 mg PO DAILY Envarsus XR 1 mg tablet extended release 24 hr 1 mg PO DAILY multivit with min-folic acid [One Daily Womens 50 Plus] 0.4 mg tablet 1 tab PO magnesium oxide 400 mg (241.3 mg magnesium) tablet 400 mg PO BID omeprazole 20 mg capsule,delayed release(DR/EC) 20 mg PO DAILY tramadol 50 mg tablet 50 mg PO DAILY acetaminophen [Tylenol] 325 mg capsule 650 mg PO QID PRN Referrals Follow up/Referrals: Igor Farfan DO [Primary Care Provider] - See instructions Activity Restrictions/Add. Instructions Additional Instructions/Restrictions: Please follow-up with your primary care provider. Please return to the emergency department if you develop any new or worsening symptoms or become concerned for your health. Clinical Impressions Clinical Impression: Abdominal pain Instructions Patient Instructions: DI for Acute Abdominal Pain Discharge ED Provider: Oni Arambula General Adult HPI General Chief complaint: Abdominal Pain Stated complaint: pain in left side of abd Time Seen by Provider: 09/14/23 02:20 Mode of Arrival: Ambulatory Source of Information: Patient Limitations: No Limitations Description of Symptoms (Recalled from ER Triage Doc. by RN): Patient reports left lower quadrant pain starting yesterday morning when she woke up. The pain has progressively worsened throughout the day. Patient reports that the pain is 9/10 with movement only. Patient reports no pain while resting and still. Last bowel movement @ 1930. No medications taken at home. History of Present Illness HPI narrative: 68-year-old female with history of liver transplant in 2019 presents with left-sided abdominal pain. She reports that she noticed it when she woke up this morning. The pain is getting worse. The pain is only present when she moves, it goes away completely when she lies still. She had a bowel movement earlier today and reports was normal. No reported fever. She did not take anything for pain prior to arrival. Related Data Home Medications Medication Instructions Recorded Confirmed acetaminophen 325 mg capsule 650 mg PO QID PRN 06/30/23 06/30/23 (Tylenol) atorvastatin 20 mg tablet 20 mg PO DAILY 06/30/23 06/30/23 doxycycline hyclate 100 mg capsule 100 mg PO DAILY 06/30/23 06/30/23 hydrochlorothiazide 12.5 mg tablet 12.5 mg PO DAILY 06/30/23 06/30/23 magnesium oxide 400 mg (241.3 mg 400 mg PO BID 06/30/23 06/30/23 magnesium) tablet multivitamin with minerals-folic 1 tab PO 06/30/23 06/30/23 acid 0.4 mg tablet (One Daily Womens 50 Plus) omeprazole 20 mg capsule,delayed 20 mg PO DAILY 06/30/23 06/30/23 release ondansetron HCl 4 mg tablet 4 mg PO PRN 06/30/23 06/30/23 tacrolimus 1 mg tablet,extended 1 mg PO DAILY 06/30/23 06/30/23 release 24 hr (Envarsus XR) tramadol 50 mg tablet 50 mg PO DAILY 06/30/23 06/30/23 Allergies Allergy/AdvReac Type Severity Reaction Status Date / Time No Known Allergies Allergy Verified 06/30/23 12:59 [facility] Disclaimer: The information contained in this section may have been updated after the patient was seen, as this information can be updated by other users. Medical History (Updated 09/14/23 @ 03:45 by nOi Arambula MD) GERD (gastroesophageal reflux disease) Hyperlipidemia Hypertension Surgical History (Updated 06/30/23 @ 23:25 by Igor Farfan DO) History of ankle surgery Hx of cataract surgery Hx of LASIK History of back surgery History of Liver transplant recipient History of right knee joint replacement History of hysterectomy Family History (Updated 06/30/23 @ 13:33 by Sanna Blevins CMA) Other No significant family history Social History (Updated 06/30/23 @ 13:16 by Sanna Blevins CMA) Smoking Status: Never smoker alcohol intake: never current occupational status: other Travel in the last 8 weeks: None ROS Obtained: Yes All systems reviewed & no additional complaints except as documented Physical Exam General General appearance: alert, in no apparent distress and obese Head Head exam: atraumatic and normocephalic Eye Eye exam: Present normal appearance, PERRL and EOMI ENT ENT exam: Present normal oropharynx and normal external ear exam Neck Neck exam: Present normal inspection and full ROM Chest Chest inspection: Present normal inspection and symmetric chest wall rise; Absent tenderness Respiratory Respiratory exam: Present normal lung sounds bilaterally; Absent respiratory distress Cardiovascular Cardiovascular exam: Present regular rate and normal rhythm Abdominal Exam Abdominal exam: Present soft, tenderness (Left mid abdomen.) and scar; Absent distention or guarding Extremities Exam Extremities exam: Present normal inspection; Absent edema or joint swelling Back Exam Back exam: Present normal inspection; Absent tenderness Neurological Exam Neurological exam: Present alert and oriented X3; Absent motor sensory deficit Psychiatric Psychiatric exam: Present normal affect and normal mood Skin Skin exam: Present warm, dry and normal color Lymphatic Lymphatic Findings: no adenopathy Medical Decision Making Medical Records Medical records reviewed: Yes I reviewed the patient's medical records. [place] Inquiry Pt receiving controlled substance: No Jackson was queried for this patient: No Vital Signs: 09/14/23 02:19 09/14/23 02:29 09/14/23 03:52 Temperature 98.2 F 98.2 F Temperature Source Oral Oral Pulse Rate 95 H 91 H Pulse Rate [Right Radial] 122 H Respiratory Rate 19 19 Blood Pressure 124/75 Blood Pressure [Right Arm] 186/117 H Blood Pressure Mean [Right Arm] 140 Blood Pressure Source Automatic Cuff Blood Pressure Source [Right Arm] Automatic Cuff Blood Pressure Position Sitting Blood Pressure Position [Right Arm] Supine 02 Sat by Pulse Oximetry 92 L 94 L Oxygen Delivery Method Room Air Room Air Room Air Lab Data Lab results reviewed: Yes I reviewed the patient's lab results. Lab Results 09/14/23 02:20: WBC 8.4, RBC 4.88, Hgb 14.7, Hct 44.4, MCV 91.0, MCH 30.1, MCHC 33.1, RDW 15.9, Plt Count 181, MPV 8.2, Neut % (Auto) 52.4, Lymph % (Auto) 37.7, [place] % (Auto) 7.3, Eos % (Auto) 1.2, Baso % (Auto) 1.4, Neut # (Auto) 4.4, Lymph # (Auto) 3.2, [place] # (Auto) 0.6, Eos # (Auto) 0.1, Baso # (Auto) 0.1, Sodium 140, Potassium 3.9, Chloride 106, Carbon Dioxide 29, Anion Gap 8.9, BUN 23 H, Creatinine 1.00, Estimated Creat Clear 45, Estimated GFR 55 L, Est GFR ( Amer) 67, Glucose 129 H, Calcium 9.2, Total Bilirubin 0.8, AST 31, ALT 23, Alkaline Phosphatase 88, Total Protein 6.6, Albumin 4.0, Globulin 2.6, Albumin/Globulin Ratio 1.5, Lipase 174 09/14/23 03:08: Urine Color Yellow, Urine Appearance Clear, Urine pH 6.0, Ur Specific Oscar 1.020, Urine Protein Negative, Urine Glucose (UA) Negative, Urine Ketones Negative, Urine Blood Negative, Urine Nitrate Negative, Urine Bilirubin Negative, Urine Urobilinogen 0.2, Ur Leukocyte Esterase 1+ A, Urine RBC None, Urine WBC 10-20, Ur Squamous Epith Cells 5-10, Urine Bacteria Trace 09/14/23 02:20 09/14/23 02:20 Orders (Tests/Meds): ED MEDICATIONS Discontinued Medications Generic Name Dose Route Start Last Admin Trade Name Freq PRN Reason Stop Dose Admin Acetaminophen 1,000 mg 09/14/23 02:31 09/14/23 02:35 Acetaminophen 500mg Tab PO 09/14/23 02:32 1,000 mg ONCE ONE Administration Iopamidol 75 ml 09/14/23 03:01 09/14/23 03:02 Iopamidol-370 (76%);100ml Bottle IV 09/14/23 03:02 75 ml ONCE ONE Administration Sodium Chloride 10 ml 09/14/23 03:01 09/14/23 03:02 Sodium Chloride 0.9% 10ml Syr (Rad Only) IV 10/14/23 03:00 10 ml NEEDED PRN Administration Maintain IV Site ORDERS Category Date Time Status CT abdomen pelvis w con Stat Cat Scan 09/14/23 02:26 Completed CBC w/Auto Diff [Complete Blood Count Auto Diff] Stat Lab 09/14/23 02:20 Completed CMP [Comprehensive Metabolic Panel] Stat Lab 09/14/23 02:20 Completed Lipase Stat Lab 09/14/23 02:20 Completed UA [Urinalysis and Microscopic] Stat Lab 09/14/23 03:08 Completed Urine Culture Stat Micro 09/14/23 03:08 Received Medical Decision Narrative: 68-year-old female with history of liver transplant in 2019 presents with 1 day of mid left abdominal pain present only with movement. History was obtained interactive discussion with patient, family, chart review. On arrival, patient is [afebrile, hemodynamically stable, satting appropriately, alert, oriented x4, GCS 15], moving all extremities spontaneously. Full physical exam performed and significant for mild to moderate left mid abdominal tenderness on palpation. Differential includes but is not limited to diverticulitis, abdominal muscle strain, hernia, small bowel pathology, Patient was given p.o. Tylenol for symptomatic management and correction of underlying abnormalities. Workup initiated including CBC CMP UA CT abdomen and pelvis with IV contrast On re-evaluation, patient [remains afebrile, HD stable.] Reports that pain is mildly improved. Is only present with movement. Laboratory workup independently interpreted by me and significant for no leukocytosis, stable renal function, normal lipase. 10-20 WBCs, though given no urinary symptoms, suprapubic pain or flank pain I am not concerned that this is a UTI. Imaging independently interpreted by me and significant for no hernia, abdominal wall lesion, or bowel pathology noted. See radiology read for full review of final results. Given patient history, exam and workup, patient's presentation most likely represents muscular strain of the abdominal wall, though some diagnostic uncertainty remains. These findings were communicated with patient. She is discharged in stable condition with instructions regarding symptomatic care. Return precautions given. Procedures Risk/Benefits of Procedure(s) Were Explained: Yes Critical Care Critical Care Time Critical Care Time: No
[2023-09-14 02:34] LABS: Basophils # 0.1 K/mm3 (0-0.2); Basophils % 1.4 % (0.1-2.0); Eosinophils # 0.1 K/mm3 (0.0-0.4); Eosinophils % 1.2 % (0.1-12.0); Hematocrit 44.4 % (37.0-47.0); Hemoglobin 14.7 g/dL (12.2-16.2); Lymphocytes # 3.2 K/mm3 (0.7-4.5); Lymphocytes % 37.7 % (10-50); Mean Corpuscular HGB Conc 33.1 g/dL (31.8-35.4); Mean Corpuscular Hemoglobin 30.1 pg (27.0-31.2); Mean Platelet Volume 8.2 fl (7.4-10.4); Monocytes # 0.6 K/mm3 (0.1-1.0); Monocytes % 7.3 % (1.7-9.3); Neutrophils # 4.4 K/mm3 (1.8-7.8); Neutrophils % 52.4 % (37.0-80.0); Platelet Count 181 K/mm3 (142-424); Red Blood Count 4.88 M/mm3 (4.20-5.40); Red Cell Distribution Width 15.9 % (11.5-17.5); White Blood Count 8.4 K/mm3 (4.8-10.8)
[2023-09-14] MEDS: ACETAMINOPHEN 500MG TAB 1000 MG PO (02:35)
--- NOTE | 2023-09-14 02:37 | PC.NURSE ---
Pt aware of UA needed
[2023-09-14 02:38] LABS: Chloride 106 mmol/L (98-107); Sodium 140 mmol/L (136-145)
[2023-09-14 02:39] LABS: Potassium 3.9 mmoL/L (3.5-5.1)
[2023-09-14 02:41] LABS: Alanine Aminotransferase 23 U/L (12-78); Alkaline Phosphatase 88 U/L (38-126); Anion Gap 8.9 mEq/L (5-15); Aspartate Amino Transferase 31 U/L (14-36); Bilirubin,Total 0.8 mg/dl (0.2-1.3); Blood Urea Nitrogen 23 mg/dl (7-17); Carbon Dioxide 29 mmol/L (22.0-30.0); Creatinine Clearance Estimated 45 mL/min (50-200); Estimated Glomerular Filt Rate 55 ml/min (>60); GFR (African American) 67 ML/MIN (>60); Lipase 174 U/L (23-300)
[2023-09-14 02:42] LABS: Albumin/Globulin Ratio 1.5 (1.1-1.8); Calcium 9.2 mg/dl (8.4-10.2); Globulin 2.6 g/dL (1.3-3.2); Glucose 129 mg/dl (74-100); Total Protein,Serum 6.6 g/dl (6.3-8.2)
--- NOTE | 2023-09-14 02:48 | PC.NURSE ---
pt to ct at this time
--- NOTE | 2023-09-14 02:59 | PC.NURSE ---
pt back from CT
[2023-09-14] MEDS: SODIUM CHLORIDE 0.9% 10ML SYR (RAD ONLY) 10 ML IV (03:02)
[2023-09-14] MEDS: IOPAMIDOL-370 (76%);100ML BOTTLE 75 ML IV (03:02)
--- NOTE | 2023-09-14 03:07 | PC.NURSE ---
urine collected and sent to lab
[2023-09-14 03:10] LABS: Microscopic, Urine URINE MICROSCOPIC (MICROSCOPIC)
[2023-09-14 03:11] LABS: Appearance,Urine CLEAR (Clear); Bilirubin,Urine Negative (Negative); Blood, Urine Negative (Negative); Color,Urine YELLOW (Yellow); Glucose,Urine (UA) Negative (Negative); Ketones,Urine Negative (Negative); Leukocyte Esterase,Urine 1+ (Negative); Nitrate,Urine Negative (Negative); Protein,Urine Negative (Negative); Urobilinogen,Urine 0.2 EU/dl (0.2)
[2023-09-14 03:25] LABS: Bacteria,Urine Trace /lpf
[2023-09-14 03:52] VITALS: BP 124/75; PULSE 91; RESP 19; TEMP 36.8; O2SAT 93
== END 2023-09-14 03:53 | disposition home or self-care (01) ==
PROVIDERS: Emergency Provider Emergency Medicine; PCP Internal Medicine
DX: R10.32 Left lower quadrant pain (principal); B96.89 Other specified bacterial agents as the cause of diseases classified elsewhere; K21.9 Gastro-esophageal reflux disease without esophagitis; E78.5 Hyperlipidemia, unspecified; I10 Essential (primary) hypertension
CPT/HCPCS: 74177; 80053; 81001; 83690; 85025; 87086; 99284; Q9967